=== PATIENT | female | born 1980 | race Hispanic/Latino ===

== ENCOUNTER 2020-06-21 21:12 | Emergency (ER) | payer SELFPAY ==
[2020-06-21] MEDS ORDERED: Ibuprofen 800 MG TAB ONE (22:19)
[2020-06-21] MEDS ORDERED: Acetaminophen 500 MG TAB ONE (22:19)
[2020-06-21] MEDS ORDERED: Lidocaine Viscous Sol 2% 15 ml UD Cup ONE (22:19)
[2020-06-21] MEDS ORDERED: Morphine 4 MG/ML VIAL ONE ×2 (22:34→22:38)
[2020-06-21] MEDS ORDERED: Ketorolac Tromethamine 10 MG TAB PO SCH (23:00)
== END 2020-06-21 23:30 | disposition home or self-care (01) ==
LOC: ERS 21:12
DX: T23.102A Burn of first degree of left hand, unspecified site, initial encounter (principal); T31.0 Burns involving less than 10% of body surface; X12.XXXA Contact with other hot fluids, initial encounter
CPT/HCPCS: 96372; 99283; J2270

== ENCOUNTER 2022-11-13 16:33 | Emergency (ER) | payer SELFPAY ==
[2022-11-14] MEDS ORDERED: Morphine 4 MG/ML VIAL ONE (09:21)
[2022-11-14] MEDS ORDERED: Ondansetron PF 4 MG/2 ML Vial ONE (09:21)
[2022-11-14] MEDS ORDERED: Silver Nitrate Application 1 EACH ONE ×2 (09:58→09:59)
[2022-11-14] MEDS ORDERED: Oxymetazoline HCl 0.05% (30 ML BOT) ONE (10:02)
[2022-11-14] MEDS ORDERED: Bacitracin 1 PK ONE (10:02)
== END 2022-11-13 18:29 ==
LOC: ERS 16:33
DX: Z53.21 Procedure and treatment not carried out due to patient leaving prior to being seen by health care provider (principal)
CPT/HCPCS: J2270; J2405

== ENCOUNTER 2022-11-14 06:48 | Emergency (ER) | payer SELFPAY ==
[2022-11-14 09:53] LABS: #Eosinphils 0.1 thou/uL (0.0-0.7); #Lymphocytes 2.4 thou/uL (1.20-3.40); #Monocytes 0.6 thou/uL (0.11-0.59); #Neutrophils 7.8 thou/uL (1.40-6.50); %Basophils 0.4 % (0.0-1.0); %Lymphocytes 22.1 % (21.0-51.0); %Monocytes 5.4 % (0.0-10.0); %Neutrophils 71.1 % (42.0-75.0); Hemoglobin 11.9 g/dL (12.0-16.0); Mean Corpuscular HGB CONC 33.4 g/dL (32.0-36.0); Mean Corpuscular Hemoglobin 28.7 pg (27.0-31.0); Mean Platelet Volume 9.5 fL (7.4-10.4); Platelet Count 294 10x3/uL (130-400); RBC Distribution Width 13.6 % (11.5-14.5); Red Blood Cell (RBC) Count 4.15 mill/uL (4.20-5.40); White Blood Cell (WBC) Count 10.9 10x3/uL (4.8-10.8)
[2022-11-14 09:54] LABS: Prothrombin Time 13.2 sec (12.0-14.7)
[2022-11-14 09:55] LABS: PTT 29.9 sec (22.9-36.1)
[2022-11-14 10:01] LABS: ALT (SGPT) Less than 7 U/L (8-55); AST (SGOT) 10 U/L (5-34); Albumin 4.5 g/dL (3.5-5.0); Alkaline Phosphatase 72 U/L (40-110); Anion Gap 14 mmol/L (10-20); BUN (Urea Nitrogen) 14 mg/dL (7.0-18.7); Bilirubin, Total 0.4 mg/dL (0.2-1.2); Calc. Creatinine Clearance 0 mL/min (70-130); Calcium 9.3 mg/dL (7.8-10.44); Carbon Dioxide 20 mmol/L (22-29); Chloride 107 mmol/L (98-107); Estimated GFR 112; Glucose 97 mg/dL (70-105); Potassium 3.9 mmol/L (3.5-5.1); Protein, Total 7.5 g/dL (6.0-8.3); Sodium 137 mmol/L (136-145)
== END 2022-11-14 08:00 | disposition home or self-care (01) ==
LOC: ERS 06:48
DX: R04.0 Epistaxis (principal)
CPT/HCPCS: 30903; 36415; 80053; 85025; 85610; 85730; 86850; 86900; 86901; 96374; 96375